=== PATIENT | male | born 2000 | race African-American/Black ===

== ENCOUNTER 2020-08-28 00:34 | Emergency (ER) | payer OTHER ==
[~2020-08-28] VITALS: Ht 190.5 cm; Wt 108.9 kg
[2020-08-28 00:41] VITALS: BP 118/56
[2020-08-28] MEDS ORDERED: MEDROLDOSEPACK PO (01:12)
== END 2020-08-28 01:30 | disposition home or self-care (01) ==
LOC: ER 00:34
DX: R21 Rash and other nonspecific skin eruption (principal)